=== PATIENT | male | born 1940 | race Caucasian/White ===

== ENCOUNTER 2018-01-24 13:58 | Day surgery (SDC) | payer MEDICARE ==
[2018-01-24] VITALS (7 sets, daily range): BP systolic 98–130; BP diastolic 62–87
[~2018-01-24] VITALS: Ht 177.8 cm; Wt 91.2 kg
[~2018-01-24 13:58] MED LIST: ASPI81TA52 PO; ATOR40TA PO; CARV25TA2 PO; CLON-529 PO; DABI150C PO; HYDR-4069 PO; HYDR25TA4 PO; ISOS60TA4 PO; LISI40TA4 PO; NITR0.4T51 SL
[2018-01-24] MEDS ORDERED: LORazepam 0.5 MG tablet PO PRN (14:25)
[2018-01-24] MEDS ORDERED: diphenhydrAMINE 25mg capsule PO PRN (14:25)
[2018-01-24] MEDS ORDERED: normal saline 1000ml 1,000 ML IV SCH (14:25)
[2018-01-24] MEDS ORDERED: POTA20PA40 PO (14:43)
[2018-01-24] MEDS ORDERED: FURO40TA4 PO (14:43)
[2018-01-24] MEDS ORDERED: AMLO10TA4 PO (14:43)
[2018-01-24] MEDS ORDERED: OMEP20TA23 PO (14:43)
[2018-01-24] MEDS ORDERED: TRAZ-218 PO (14:43)
[2018-01-24] MEDS ORDERED: CHLO25TA2 PO (14:44)
[2018-01-24] MEDS ORDERED: midazolam 2 mg/2 ml injection ONE (16:22)
[2018-01-24] MEDS ORDERED: LIDOcaine 1% (10mg/ml)w/preservative injection 20ml MDV ONE (16:22)
[2018-01-24] MEDS ORDERED: fentaNYL/PF 50MCG/1 ML 2ML syringe ONE (16:22)
[2018-01-24] MEDS ORDERED: iohexol 350MG/ML 100ml bottle IV ONE (16:22)
[2018-01-24] MEDS ORDERED: iohexol 350 MG/ML 50ML vial IV ONE (17:20)
[2018-01-24] MEDS ORDERED: ondansetron/PF 4mg/2ml inj IV PRN (18:15)
[2018-01-24] MEDS ORDERED: HYDROcodone/acetaminophen 5mg/325mg tablet PO PRN (18:15)
[2018-01-24] MEDS ORDERED: OXAZEpam 15mg capsule PO PRN (18:20)
[2018-01-24] MEDS ORDERED: proCHLORperazine 10 MG/2 ml inj IV PRN (18:20)
[2018-01-24] MEDS ORDERED: HYDROcodone/acetaminophen 10/325mg tab PO PRN (18:20)
[2018-01-24] MEDS ORDERED: ACETYLCYSTEINE 200 MG/1 ML 4 ML ORAL SOLUTION PO SCH (20:00)
== END 2018-01-24 20:03 | disposition home or self-care (01) ==
LOC: SSTAY O 13:58
PROVIDERS: ATTEND Internal Medicine Interventional Cardiology
DX: I25.708 Atherosclerosis of coronary artery bypass graft(s), unspecified, with other forms of angina pectoris (principal); E78.5 Hyperlipidemia, unspecified; I25.2 Old myocardial infarction; I48.91 Unspecified atrial fibrillation; I44.7 Left bundle-branch block, unspecified; I45.81 Long QT syndrome; I25.5 Ischemic cardiomyopathy; I65.23 Occlusion and stenosis of bilateral carotid arteries; K21.9 Gastro-esophageal reflux disease without esophagitis; E78.00 Pure hypercholesterolemia, unspecified; I11.0 Hypertensive heart disease with heart failure; I50.9 Heart failure, unspecified; G89.29 Other chronic pain; Z85.828 Personal history of other malignant neoplasm of skin; Z95.0 Presence of cardiac pacemaker; Z90.49 Acquired absence of other specified parts of digestive tract; Z86.79 Personal history of other diseases of the circulatory system; Z95.1 Presence of aortocoronary bypass graft; Z95.5 Presence of coronary angioplasty implant and graft; Z86.73 Personal history of transient ischemic attack (TIA), and cerebral infarction without residual deficits; Z79.82 Long term (current) use of aspirin; Z79.891 Long term (current) use of opiate analgesic; Z86.74 Personal history of sudden cardiac arrest; Z79.899 Other long term (current) drug therapy; Z98.890 Other specified postprocedural states
CPT/HCPCS: 93005; 93459; 99152; 99153; A6257; C1769; J1644; J2001; J2250; J3010; J7030; Q0163; Q9967; A4620

== ENCOUNTER 2018-03-21 18:46 | Inpatient (IN) | payer MEDICARE ==
[~2018-03-21] VITALS: Ht 177.8 cm; Wt 90.0 kg
[~2018-03-21 18:46] MED LIST changes: +AMLO10TA4 PO; +CHLO25TA2 PO; +FURO40TA4 PO; -HYDR25TA4 PO; +OMEP20TA23 PO; +POTA20PA40 PO; +TRAZ-218 PO
[2018-03-21 19:52] LABS: BASOPHILS % (AUTO) 0.1 % (0-1); EOSINOPHILS # (AUTO) 0.3 X10'3 (0-0.9); EOSINOPHILS % (AUTO) 1.6 % (0-6); HEMATOCRIT 35.9 % (42.0-52.0); HEMOGLOBIN 11.9 g/dl (14.0-17.9); LYMPHOCYTES # (AUTO) 1.1 X10'3 (1.1-4.8); LYMPHOCYTES % (AUTO) 5.7 % (21-51); MEAN CORPUSCULAR HEMOGLOBIN 28.5 PG (27.0-31.0); MEAN CORPUSCULAR VOLUME 86.3 FL (78-98); MEAN PLATELET VOLUME 6.9 FL (7.4-10.4); MONOCYTES # (AUTO) 0.5 X10'3 (0-0.9); MONOCYTES % (AUTO) 2.6 % (2-12); NEUTROPHILS # (AUTO) 16.6 X10'3 (1.8-7.7); PLATELET COUNT 368 X10'3 (140-440); RED BLOOD COUNT 4.17 X10'6 (4.70-6.10); RED CELL DISTRIBUTION WIDTH 14.9 % (11.5-14.5); WHITE BLOOD COUNT 18.5 X10'3 (4.5-11.0)
[2018-03-21 20:02] LABS: ALANINE AMINOTRANSFERASE 51 U/L (12-78); ALBUMIN 2.6 G/DL (3.4-5.0); ALBUMIN/GLOBULIN RATIO 0.6 (1.1-1.5); ALKALINE PHOSPHATASE 114 IU/L (46-116); ANION GAP 8 (8-16); ASPARTATE AMINO TRANSFERASE 30 U/L (10-37); BILIRUBIN,TOTAL 0.5 MG/DL (0.1-1.0); BLOOD UREA NITROGEN 25 MG/DL (7-18); BUN/CREATININE RATIO 22.7 (5.4-32.0); CALCIUM 9.2 MG/DL (8.5-10.1); CHLORIDE 98 MMOL/L (99-107); GLUCOSE 144 MG/DL (70-104); POTASSIUM 4.1 MMOL/L (3.5-5.1); SODIUM 137 MMOL/L (135-145); TOTAL CARBON DIOXIDE 30.9 MMOL/L (24-32); TOTAL PROTEIN 7.3 G/DL (6.4-8.2); eGFR 65 ML/MIN
[2018-03-21 20:04] LABS: INR 1.4 INR; PARTIAL THROMBOPLASTIN TIME 34 SECONDS (22-32); PROTHROMBIN TIME 13.6 SECONDS (9.0-12.0)
[2018-03-21] MEDS ORDERED: ipratropium/albuterol 3ml nebule NEB ONE (20:05)
[2018-03-21] MEDS ORDERED: CefTRIAXone 2gm/D5W 50ml 50 ML IV ONE (20:05)
[2018-03-21] MEDS ORDERED: methylPREDNISolone sod succ 125mg/2ml vial IV ONE (20:05)
[2018-03-21] MEDS ORDERED: normal saline 1000ML IV soln IV ONE (20:05)
[2018-03-21] MEDS ORDERED: acetaminophen 325mg tablet PO ONE (20:25)
[2018-03-21] MEDS ORDERED: normal saline 1000ml 1,000 ML IV SCH (23:13)
[2018-03-21] MEDS ORDERED: acetaminophen 325mg tablet PO PRN (23:15)
[2018-03-21] MEDS ORDERED: mag hydrox/Alum hydrox/simeth 30ml oral suspension PO PRN (23:15)
[2018-03-21] MEDS ORDERED: ondansetron/PF 4mg/2ml inj IV PRN (23:15)
[2018-03-21] MEDS ORDERED: magnesium hydroxide 30ml (MOM) UD suspension PO PRN (23:15)
[2018-03-21] MEDS ORDERED: HYDROcodone/acetaminophen 5mg/325mg tablet PO PRN (23:15)
[2018-03-21] MEDS ORDERED: azithromycin 250mg tablet PO ONE (23:20)
[2018-03-22 00:36] LABS: CLARITY,URINE CLEAR (Clear); COLOR,URINE YELLOW (Yellow); GLUCOSE, URINE NEGATIVE (Neg); KETONES,URINE TRACE mg/dl (Neg); LEUKOCYTE ESTERASE ,URINE NEGATIVE (Neg); NITRITES, URINE NEGATIVE (Neg); OCCULT BLOOD,URINE NEGATIVE (Neg); PROTEIN,URINE TRACE mg/dl (Neg)
[2018-03-22 00:39] LABS: UA COLLECTION TYPE VOIDED
[2018-03-22 00:45] LABS: BACTERIA,URINE FEW /HPF (Neg); MUCUS STRANDS FEW /LPF (Neg); RBC,URINE 0-2 /HPF (0-2); SQUAMOUS EPITHELIAL CELL,UR FEW /LPF (FEW); WBC,URINE 0-4 /HPF (0-4)
[2018-03-22] MEDS ORDERED: metoprolol tartrate 1mg/ml inj IV ONE (03:10)
[2018-03-22] MEDS: aspirin 81mg tablet.DR PO SCH (07:42)
[2018-03-22] MEDS: amLODIPine 5mg tablet PO SCH (07:42)
[2018-03-22] MEDS: carVEDilol 12.5mg tablet PO SCH ×2 (07:43→19:58)
[2018-03-22] MEDS: potassium Cl 20 mEq SR tablet PO SCH (07:43)
[2018-03-22] MEDS: pantoprazole 40mg Tablet.DR PO SCH (07:43)
[2018-03-22] MEDS: CefTRIAXone/D5W-Rocephin 1gm 50 ML IV SCH (07:44)
[2018-03-22] MEDS: azithromycin 250mg tablet PO SCH (07:44)
[2018-03-22 07:50] LABS: BASOPHILS % (AUTO) 0.2 % (0-1); EOSINOPHILS # (AUTO) 0.2 X10'3 (0-0.9); EOSINOPHILS % (AUTO) 0.8 % (0-6); HEMATOCRIT 34.2 % (42.0-52.0); HEMOGLOBIN 11.3 g/dl (14.0-17.9); LYMPHOCYTES % (AUTO) 4.7 % (21-51); MEAN CORPUSCULAR HEMOGLOBIN 28.5 PG (27.0-31.0); MEAN CORPUSCULAR VOLUME 86.4 FL (78-98); MEAN PLATELET VOLUME 7.8 FL (7.4-10.4); MONOCYTES # (AUTO) 0.8 X10'3 (0-0.9); MONOCYTES % (AUTO) 3.6 % (2-12); NEUTROPHILS # (AUTO) 19.4 X10'3 (1.8-7.7); NEUTROPHILS % (AUTO) 90.7 % (42-75); PLATELET COUNT 313 X10'3 (140-440); RED BLOOD COUNT 3.95 X10'6 (4.70-6.10); RED CELL DISTRIBUTION WIDTH 15.3 % (11.5-14.5); WHITE BLOOD COUNT 21.4 X10'3 (4.5-11.0)
[2018-03-22] MEDS: chlorthalidone 25mg tablet PO SCH (07:51)
[2018-03-22] MEDS: hydrALAZINE 25 MG tablet PO SCH ×4 (07:51→20:03)
[2018-03-22] MEDS ORDERED: furosemide 40mg tablet PO SCH (08:00)
[2018-03-22] MEDS ORDERED: heparin, porcine 5000 units/ml vial SQ SCH (08:00)
[2018-03-22 08:17] LABS: ALANINE AMINOTRANSFERASE 45 U/L (12-78); ALBUMIN 2.1 G/DL (3.4-5.0); ALBUMIN/GLOBULIN RATIO 0.5 (1.1-1.5); ALKALINE PHOSPHATASE 99 IU/L (46-116); ANION GAP 13 (8-16); ASPARTATE AMINO TRANSFERASE 35 U/L (10-37); BILIRUBIN,TOTAL 0.5 MG/DL (0.1-1.0); BLOOD UREA NITROGEN 25 MG/DL (7-18); BUN/CREATININE RATIO 28.1 (5.4-32.0); CALCIUM 8.1 MG/DL (8.5-10.1); CHLORIDE 103 MMOL/L (99-107); CREATININE 0.89 MG/DL (0.60-1.10); GLUCOSE 144 MG/DL (70-104); POTASSIUM 3.9 MMOL/L (3.5-5.1); SODIUM 138 MMOL/L (135-145); TOTAL CARBON DIOXIDE 22.3 MMOL/L (24-32); TOTAL PROTEIN 6.6 G/DL (6.4-8.2); eGFR 83 ML/MIN
[2018-03-22 08:55] LABS: PLATELET ESTIMATE DECREASED; TOTAL CELLS COUNTED 100; TOXIC GRANULATION 1+
[2018-03-22 08:56] LABS: BURR CELLS FEW; SCHISTOCYTES FEW
[2018-03-22 08:57] LABS: ELLIPTOCYTES FEW
[2018-03-22] MEDS ORDERED: furosemide 10 MG/1 ML 10ml inj IV ONE (10:40)
[2018-03-22 14:45] VITALS: BP 125/72
[2018-03-22 18:00] VITALS: BP 140/89
[2018-03-22] MEDS: furosemide 40mg/4ml inj IV SCH (19:58)
[2018-03-22] MEDS: lactobacillus rhamnosus 10,000 MMU CELLS/CAPSULE PO SCH (19:58)
[2018-03-22] MEDS: enoxaparin 80mg/0.8ml syringe SUBCUT SCH (19:59)
[2018-03-22] MEDS: traZODone 50mg tablet PO SCH (20:03)
[2018-03-22] MEDS: atorvastatin 20mg tablet PO SCH (20:04)
[2018-03-23] VITALS: BP 115/76
[2018-03-23] MEDS ORDERED: albuterol 2.5 MG/3 ML nebule NEB PRN (01:00)
[2018-03-23 05:35] LABS: BASOPHILS % (AUTO) 0 % (0-1); EOSINOPHILS % (AUTO) 0 % (0-6); HEMATOCRIT 36.4 % (42.0-52.0); LYMPHOCYTES # (AUTO) 1.7 X10'3 (1.1-4.8); LYMPHOCYTES % (AUTO) 8.1 % (21-51); MEAN CORPUSCULAR HEMOGLOBIN 28.3 PG (27.0-31.0); MEAN CORPUSCULAR HGB CONC 32.9 % (33.0-36.5); MEAN PLATELET VOLUME 7.7 FL (7.4-10.4); MONOCYTES # (AUTO) 0.7 X10'3 (0-0.9); MONOCYTES % (AUTO) 3.3 % (2-12); NEUTROPHILS # (AUTO) 18.8 X10'3 (1.8-7.7); NEUTROPHILS % (AUTO) 88.6 % (42-75); PLATELET COUNT 360 X10'3 (140-440); RED BLOOD COUNT 4.23 X10'6 (4.70-6.10); RED CELL DISTRIBUTION WIDTH 15.2 % (11.5-14.5); WHITE BLOOD COUNT 21.3 X10'3 (4.5-11.0)
[2018-03-23 05:53] LABS: ALANINE AMINOTRANSFERASE 450 U/L (12-78); ALBUMIN 2.5 G/DL (3.4-5.0); ALBUMIN/GLOBULIN RATIO 0.5 (1.1-1.5); ALKALINE PHOSPHATASE 141 IU/L (46-116); ANION GAP 12 (8-16); ASPARTATE AMINO TRANSFERASE 477 U/L (10-37); BILIRUBIN,TOTAL 0.7 MG/DL (0.1-1.0); BLOOD UREA NITROGEN 49 MG/DL (7-18); BUN/CREATININE RATIO 36.8 (5.4-32.0); CALCIUM 9.3 MG/DL (8.5-10.1); CHLORIDE 99 MMOL/L (99-107); CREATININE 1.33 MG/DL (0.60-1.10); GLUCOSE 135 MG/DL (70-104); POTASSIUM 4.1 MMOL/L (3.5-5.1); SODIUM 139 MMOL/L (135-145); TOTAL CARBON DIOXIDE 28.4 MMOL/L (24-32); TOTAL PROTEIN 7.5 G/DL (6.4-8.2); eGFR 52 ML/MIN
[2018-03-23 06:20] LABS: TOTAL CELLS COUNTED 100
[2018-03-23 06:21] LABS: ANISOCYTOSIS 1+; PLATELET ESTIMATE NORMAL; POLYCHROMASIA 1+; TOXIC GRANULATION 3+
[2018-03-23 07:30] VITALS: BP 145/76
[2018-03-23] MEDS: lactobacillus rhamnosus 10,000 MMU CELLS/CAPSULE PO SCH ×2 (07:42→19:09)
[2018-03-23] MEDS: amLODIPine 5mg tablet PO SCH (07:42)
[2018-03-23] MEDS: azithromycin 250mg tablet PO SCH (07:42)
[2018-03-23] MEDS: chlorthalidone 25mg tablet PO SCH (07:43)
[2018-03-23] MEDS: aspirin 81mg tablet.DR PO SCH (07:43)
[2018-03-23] MEDS: potassium Cl 20 mEq SR tablet PO SCH (07:43)
[2018-03-23] MEDS: hydrALAZINE 25 MG tablet PO SCH ×4 (07:43→21:40)
[2018-03-23] MEDS: furosemide 40mg/4ml inj IV SCH ×2 (07:43→19:08)
[2018-03-23] MEDS: pantoprazole 40mg Tablet.DR PO SCH (07:43)
[2018-03-23] MEDS: carVEDilol 12.5mg tablet PO SCH ×2 (07:43→19:09)
[2018-03-23] MEDS: CefTRIAXone/D5W-Rocephin 1gm 50 ML IV SCH (07:44)
[2018-03-23] MEDS: enoxaparin 80mg/0.8ml syringe SUBCUT SCH (07:44)
[2018-03-23 12:16] VITALS: BP 123/59
[2018-03-23 18:00] VITALS: BP 109/64
[2018-03-23] MEDS: traZODone 50mg tablet PO SCH (21:40)
[2018-03-23] MEDS: atorvastatin 20mg tablet PO SCH (21:40)
[2018-03-24] VITALS: BP 124/67
[2018-03-24 05:21] LABS: BASOPHILS % (AUTO) 0.2 % (0-1); EOSINOPHILS # (AUTO) 0.2 X10'3 (0-0.9); EOSINOPHILS % (AUTO) 0.9 % (0-6); HEMATOCRIT 33.5 % (42.0-52.0); HEMOGLOBIN 11.1 g/dl (14.0-17.9); LYMPHOCYTES # (AUTO) 0.9 X10'3 (1.1-4.8); LYMPHOCYTES % (AUTO) 5.3 % (21-51); MEAN CORPUSCULAR HEMOGLOBIN 28.1 PG (27.0-31.0); MEAN CORPUSCULAR HGB CONC 33.2 % (33.0-36.5); MEAN CORPUSCULAR VOLUME 84.5 FL (78-98); MONOCYTES # (AUTO) 0.5 X10'3 (0-0.9); MONOCYTES % (AUTO) 2.9 % (2-12); NEUTROPHILS # (AUTO) 15.2 X10'3 (1.8-7.7); NEUTROPHILS % (AUTO) 90.7 % (42-75); PLATELET COUNT 288 X10'3 (140-440); RED BLOOD COUNT 3.97 X10'6 (4.70-6.10); RED CELL DISTRIBUTION WIDTH 15.5 % (11.5-14.5); WHITE BLOOD COUNT 16.8 X10'3 (4.5-11.0)
[2018-03-24 05:43] LABS: ALANINE AMINOTRANSFERASE 383 U/L (12-78); ALBUMIN 2.2 G/DL (3.4-5.0); ALBUMIN/GLOBULIN RATIO 0.5 (1.1-1.5); ALKALINE PHOSPHATASE 123 IU/L (46-116); ANION GAP 13 (8-16); ASPARTATE AMINO TRANSFERASE 243 U/L (10-37); BILIRUBIN,TOTAL 0.7 MG/DL (0.1-1.0); BLOOD UREA NITROGEN 49 MG/DL (7-18); CHLORIDE 95 MMOL/L (99-107); CREATININE 1.09 MG/DL (0.60-1.10); GLUCOSE 138 MG/DL (70-104); SODIUM 139 MMOL/L (135-145); TOTAL CARBON DIOXIDE 31.4 MMOL/L (24-32); TOTAL PROTEIN 6.7 G/DL (6.4-8.2); eGFR 65 ML/MIN
[2018-03-24] MEDS ORDERED: potassium Cl 40MEQ/NS 500ml 500 ML IV PRN ×2 (05:55)
[2018-03-24 07:28] VITALS: BP 115/73
[2018-03-24] MEDS: K and/or MAG REPLACEMENT MC SCH (08:00)
[2018-03-24] MEDS: CefTRIAXone/D5W-Rocephin 1gm 50 ML IV SCH (09:26)
[2018-03-24] MEDS: carVEDilol 12.5mg tablet PO SCH ×2 (09:26→19:55)
[2018-03-24] MEDS: azithromycin 250mg tablet PO SCH (09:26)
[2018-03-24] MEDS: hydrALAZINE 25 MG tablet PO SCH ×4 (09:27→20:50)
[2018-03-24] MEDS: lactobacillus rhamnosus 10,000 MMU CELLS/CAPSULE PO SCH ×2 (09:27→19:55)
[2018-03-24] MEDS: aspirin 81mg tablet.DR PO SCH (09:27)
[2018-03-24] MEDS: amLODIPine 5mg tablet PO SCH (09:28)
[2018-03-24] MEDS: potassium Cl 20 mEq SR tablet PO SCH (09:29)
[2018-03-24] MEDS: furosemide 40mg/4ml inj IV SCH ×2 (09:29→19:55)
[2018-03-24] MEDS: potassium Cl 20 mEq SR tablet PO PRN ×2 (09:30→19:55)
[2018-03-24] MEDS: pantoprazole 40mg Tablet.DR PO SCH (09:42)
[2018-03-24 12:00] VITALS: BP 100/60
[2018-03-24 13:30] VITALS: BP 98/59
[2018-03-24 18:00] VITALS: BP 118/63
[2018-03-24] MEDS: traZODone 50mg tablet PO SCH (20:50)
[2018-03-24] MEDS: atorvastatin 20mg tablet PO SCH (20:50)
[2018-03-24 23:30] VITALS: BP 109/66
[2018-03-25 05:32] LABS: BASOPHILS % (AUTO) 0.1 % (0-1); EOSINOPHILS % (AUTO) 0.1 % (0-6); HEMATOCRIT 33.3 % (42.0-52.0); LYMPHOCYTES # (AUTO) 1.3 X10'3 (1.1-4.8); LYMPHOCYTES % (AUTO) 8.9 % (21-51); MEAN CORPUSCULAR HEMOGLOBIN 28.1 PG (27.0-31.0); MEAN CORPUSCULAR HGB CONC 32.9 % (33.0-36.5); MEAN CORPUSCULAR VOLUME 85.5 FL (78-98); MEAN PLATELET VOLUME 8.4 FL (7.4-10.4); MONOCYTES # (AUTO) 0.7 X10'3 (0-0.9); MONOCYTES % (AUTO) 4.8 % (2-12); NEUTROPHILS # (AUTO) 12.3 X10'3 (1.8-7.7); NEUTROPHILS % (AUTO) 86.1 % (42-75); PLATELET COUNT 320 X10'3 (140-440); WHITE BLOOD COUNT 14.3 X10'3 (4.5-11.0)
[2018-03-25 05:33] LABS: ALANINE AMINOTRANSFERASE 467 U/L (12-78); ALBUMIN 2.2 G/DL (3.4-5.0); ALBUMIN/GLOBULIN RATIO 0.4 (1.1-1.5); ALKALINE PHOSPHATASE 128 IU/L (46-116); ANION GAP 8 (8-16); ASPARTATE AMINO TRANSFERASE 267 U/L (10-37); BILIRUBIN,TOTAL 0.7 MG/DL (0.1-1.0); BLOOD UREA NITROGEN 47 MG/DL (7-18); BUN/CREATININE RATIO 43.9 (5.4-32.0); CALCIUM 8.9 MG/DL (8.5-10.1); CHLORIDE 95 MMOL/L (99-107); CREATININE 1.07 MG/DL (0.60-1.10); GLUCOSE 142 MG/DL (70-104); POTASSIUM 3.4 MMOL/L (3.5-5.1); SODIUM 135 MMOL/L (135-145); TOTAL CARBON DIOXIDE 32.4 MMOL/L (24-32); TOTAL PROTEIN 7.1 G/DL (6.4-8.2); eGFR 67 ML/MIN
[2018-03-25 07:49] VITALS: BP 112/66
[2018-03-25] MEDS: K and/or MAG REPLACEMENT MC SCH (08:00)
[2018-03-25] MEDS: azithromycin 250mg tablet PO SCH (08:57)
[2018-03-25] MEDS: lactobacillus rhamnosus 10,000 MMU CELLS/CAPSULE PO SCH ×2 (08:58→19:16)
[2018-03-25] MEDS: aspirin 81mg tablet.DR PO SCH (08:58)
[2018-03-25] MEDS: pantoprazole 40mg Tablet.DR PO SCH (08:58)
[2018-03-25] MEDS: carVEDilol 12.5mg tablet PO SCH ×2 (08:59→19:15)
[2018-03-25] MEDS: hydrALAZINE 25 MG tablet PO SCH ×4 (08:59→21:33)
[2018-03-25] MEDS: amLODIPine 5mg tablet PO SCH (08:59)
[2018-03-25] MEDS: potassium Cl 20 mEq SR tablet PO PRN ×2 (09:00→19:15)
[2018-03-25] MEDS: potassium Cl 20 mEq SR tablet PO SCH (09:00)
[2018-03-25] MEDS: CefTRIAXone/D5W-Rocephin 1gm 50 ML IV SCH (09:01)
[2018-03-25] MEDS: furosemide 40mg/4ml inj IV SCH ×2 (09:02→19:21)
[2018-03-25 12:48] VITALS: BP 114/68
[2018-03-25 18:00] VITALS: BP 137/56
[2018-03-25] MEDS: traZODone 50mg tablet PO SCH (21:33)
[2018-03-25] MEDS: atorvastatin 20mg tablet PO SCH (21:33)
[2018-03-26] VITALS: BP 112/62
[2018-03-26 06:40] LABS: BASOPHILS % (AUTO) 0.1 % (0-1); EOSINOPHILS # (AUTO) 0.2 X10'3 (0-0.9); EOSINOPHILS % (AUTO) 1.4 % (0-6); HEMATOCRIT 31.4 % (42.0-52.0); HEMOGLOBIN 10.4 g/dl (14.0-17.9); LYMPHOCYTES # (AUTO) 1.2 X10'3 (1.1-4.8); LYMPHOCYTES % (AUTO) 10.2 % (21-51); MEAN CORPUSCULAR HEMOGLOBIN 28.1 PG (27.0-31.0); MEAN CORPUSCULAR HGB CONC 33.1 % (33.0-36.5); MEAN CORPUSCULAR VOLUME 84.9 FL (78-98); MEAN PLATELET VOLUME 8.3 FL (7.4-10.4); MONOCYTES # (AUTO) 0.7 X10'3 (0-0.9); MONOCYTES % (AUTO) 5.9 % (2-12); NEUTROPHILS % (AUTO) 82.4 % (42-75); PLATELET COUNT 293 X10'3 (140-440); RED CELL DISTRIBUTION WIDTH 14.3 % (11.5-14.5); WHITE BLOOD COUNT 12.1 X10'3 (4.5-11.0)
[2018-03-26 07:00] VITALS: BP 124/68
[2018-03-26 07:04] LABS: ALANINE AMINOTRANSFERASE 412 U/L (12-78); ALBUMIN/GLOBULIN RATIO 0.4 (1.1-1.5); ALKALINE PHOSPHATASE 118 IU/L (46-116); ANION GAP 6 (8-16); ASPARTATE AMINO TRANSFERASE 181 U/L (10-37); BILIRUBIN,TOTAL 0.6 MG/DL (0.1-1.0); BLOOD UREA NITROGEN 39 MG/DL (7-18); BUN/CREATININE RATIO 39.4 (5.4-32.0); CALCIUM 8.6 MG/DL (8.5-10.1); CHLORIDE 96 MMOL/L (99-107); CREATININE 0.99 MG/DL (0.60-1.10); GLUCOSE 138 MG/DL (70-104); SODIUM 137 MMOL/L (135-145); TOTAL PROTEIN 6.5 G/DL (6.4-8.2); eGFR 73 ML/MIN
[2018-03-26 07:26] LABS: POTASSIUM 2.9 MMOL/L (3.5-5.1)
[2018-03-26] MEDS: K and/or MAG REPLACEMENT MC SCH (08:00)
[2018-03-26] MEDS: furosemide 40mg/4ml inj IV SCH (08:21)
[2018-03-26] MEDS: CefTRIAXone/D5W-Rocephin 1gm 50 ML IV SCH (08:21)
[2018-03-26] MEDS: aspirin 81mg tablet.DR PO SCH (08:28)
[2018-03-26] MEDS: azithromycin 250mg tablet PO SCH (08:28)
[2018-03-26] MEDS: potassium Cl 20 mEq SR tablet PO SCH (08:28)
[2018-03-26] MEDS: potassium Cl 20 mEq SR tablet PO PRN ×2 (08:28→13:52)
[2018-03-26] MEDS: amLODIPine 5mg tablet PO SCH (08:29)
[2018-03-26] MEDS: hydrALAZINE 25 MG tablet PO SCH ×2 (08:29→13:00)
[2018-03-26] MEDS: carVEDilol 12.5mg tablet PO SCH (08:29)
[2018-03-26] MEDS: pantoprazole 40mg Tablet.DR PO SCH (09:23)
[2018-03-26] MEDS: lactobacillus rhamnosus 10,000 MMU CELLS/CAPSULE PO SCH (09:23)
[2018-03-26 11:00] VITALS: BP 94/53
== END 2018-03-26 13:54 | DRG 871 ==
LOC: ER 18:46 → ED HOLD 23:13 → EDBEDREQSVC 23:39 → EDBEDREQ 03-22 13:08 → SUR 3N 03-22 14:30
PROVIDERS: ADMIT Internal Medicine; ATTEND Family Medicine
DX: A41.9 Sepsis, unspecified organism (principal); J18.1 Lobar pneumonia, unspecified organism; I50.33 Acute on chronic diastolic (congestive) heart failure; J96.20 Acute and chronic respiratory failure, unspecified whether with hypoxia or hypercapnia; I48.91 Unspecified atrial fibrillation; E78.5 Hyperlipidemia, unspecified; E87.6 Hypokalemia; R79.89 Other specified abnormal findings of blood chemistry; I25.10 Atherosclerotic heart disease of native coronary artery without angina pectoris; I11.0 Hypertensive heart disease with heart failure; Z23 Encounter for immunization; Z79.82 Long term (current) use of aspirin; Z79.899 Other long term (current) drug therapy; Z95.1 Presence of aortocoronary bypass graft; Z95.810 Presence of automatic (implantable) cardiac defibrillator; Z86.73 Personal history of transient ischemic attack (TIA), and cerebral infarction without residual deficits
CPT/HCPCS: 36415; 71045; 80053; 81001; 83605; 84145; 85025; 85610; 85730; 87040; 87070; 87502; 87503; 93005; 94640; 94667; 94668; 94760; 96365; 96375; 97110; 97116; 97161; 97535; 99285; G0378; J0696; J1644; J1650; J1940; J2930; J3490

== ENCOUNTER 2018-04-11 10:37 | Inpatient (IN) | payer MEDICARE ==
[~2018-04-11] VITALS: Ht 177.8 cm; Wt 96.0 kg
[~2018-04-11 10:37] MED LIST changes: -CLON-529 PO; -DABI150C PO; -ISOS60TA4 PO; -LISI40TA4 PO; -NITR0.4T51 SL; +amiodarone 50MG/ML inj IV ONE; +calcium chloride 100 MG/1 ML inj IV ONE; +dextrose 50%-water 50ml dispensing syringe IV ONE; +epiNEPHrine 0.1mg/ml 10ml syringe ONE; +magnesium sulf 1 GM/2 ML ONE; +naloxone 0.4 mg/ml inj ONE; +sodium bicarbonate (8.4%) 1 mEq/ml syringe ONE
[2018-04-11] MEDS ORDERED: aspirin 81mg tab.chew PO ONE (10:45)
[2018-04-11 11:18] LABS: BASOPHILS % (AUTO) 0.3 % (0-1); EOSINOPHILS % (AUTO) 0.4 % (0-6); HEMATOCRIT 30.6 % (42.0-52.0); HEMOGLOBIN 9.8 g/dl (14.0-17.9); LYMPHOCYTES % (AUTO) 15.6 % (21-51); MEAN CORPUSCULAR HEMOGLOBIN 28.1 PG (27.0-31.0); MEAN PLATELET VOLUME 7.6 FL (7.4-10.4); MONOCYTES # (AUTO) 0.5 X10'3 (0-0.9); MONOCYTES % (AUTO) 7.4 % (2-12); NEUTROPHILS # (AUTO) 5.2 X10'3 (1.8-7.7); NEUTROPHILS % (AUTO) 76.3 % (42-75); PLATELET COUNT 236 X10'3 (140-440); RED BLOOD COUNT 3.48 X10'6 (4.70-6.10); RED CELL DISTRIBUTION WIDTH 17.3 % (11.5-14.5); WHITE BLOOD COUNT 6.7 X10'3 (4.5-11.0)
[2018-04-11] MEDS ORDERED: normal saline 1000ML IV soln IVB ONE (11:20)
[2018-04-11 11:30] LABS: ALANINE AMINOTRANSFERASE 512 U/L (12-78); ALBUMIN 2.7 G/DL (3.4-5.0); ALBUMIN/GLOBULIN RATIO 0.6 (1.1-1.5); ALKALINE PHOSPHATASE 135 IU/L (46-116); ANION GAP 13 (8-16); ASPARTATE AMINO TRANSFERASE 428 U/L (10-37); BILIRUBIN,TOTAL 1.5 MG/DL (0.1-1.0); BLOOD UREA NITROGEN 45 MG/DL (7-18); BUN/CREATININE RATIO 26.3 (5.4-32.0); CALCIUM 9.1 MG/DL (8.5-10.1); CHLORIDE 101 MMOL/L (99-107); CREATININE 1.71 MG/DL (0.60-1.10); GLUCOSE 157 MG/DL (70-104); POTASSIUM 4.9 MMOL/L (3.5-5.1); SODIUM 139 MMOL/L (135-145); TOTAL CARBON DIOXIDE 25.4 MMOL/L (24-32); eGFR 39 ML/MIN
[2018-04-11 11:35] LABS: INR 1.6 INR; PARTIAL THROMBOPLASTIN TIME 29 SECONDS (22-32); PROTHROMBIN TIME 16.1 SECONDS (9.0-12.0)
[2018-04-11 11:38] LABS: MAGNESIUM 2.2 MG/DL (1.5-2.4)
[2018-04-11 12:15] LABS: LIPASE 132 U/L (73-393)
--- NOTE | 2018-04-11 13:19 | NUR ---
ASSUMED CARE OF PT FROM HALINA ANN
[2018-04-11] MEDS ORDERED: potassium Cl 40MEQ/NS 500ml 500 ML IV PRN ×2 (13:25)
[2018-04-11] MEDS ORDERED: HYDROcodone/acetaminophen 5mg/325mg tablet PO PRN (13:25)
[2018-04-11] MEDS ORDERED: magnesium 4gm in 100ml NS 100 ML IV PRN (13:25)
[2018-04-11] MEDS ORDERED: potassium Cl 20 mEq SR tablet PO PRN ×2 (13:25)
[2018-04-11] MEDS ORDERED: acetaminophen 325mg tablet PO PRN (13:25)
[2018-04-11] MEDS ORDERED: morphine 4 MG/ML inj SYRINge IV PRN (13:25)
[2018-04-11] MEDS ORDERED: ondansetron/PF 4mg/2ml inj IV PRN (13:25)
[2018-04-11] MEDS ORDERED: magnesium Cl slow-release 64mg tablet PO PRN (13:25)
--- NOTE | 2018-04-11 14:00 | NUR ---
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
--- NOTE | 2018-04-11 14:14 | NUR ---
PT IS G[facility] 14, ALERT AND ORIENTED, SKIN IS PALE, DRY AND WARM, RESP EVEN AND UNLABORED, PT DENIES DIZZINESS "I JUST FEEL WEAK BUT A LITTLE BETTER THAN WHEN I FIRST CAME IN"
--- NOTE | 2018-04-11 14:26 | NUR ---
paged hospitalist regarding blood pressure
--- NOTE | 2018-04-11 14:40 | NUR ---
DR JEROME GAVE VERBAL ORDER NS 50ML/HR, AWARE OF LOW BP
[2018-04-11] MEDS ORDERED: normal saline 1000ml 1,000 ML IV SCH (14:45)
--- NOTE | 2018-04-11 15:20 | NUR ---
FAMILY WENT HOME,
[2018-04-11 15:22] VITALS: BP 116/39
--- NOTE | 2018-04-11 15:24 | NUR ---
SEE CODE SHEET. PT WAS FOUND NOT BREATHING, NO PULSE, CPR STARTED
[2018-04-11] MEDS ORDERED: amiodarone/D5 360MG/200ML BAG 200 ML IV SCH (15:35)
[2018-04-11 15:43] LABS: OCCULT BLOOD STOOL NEGATIVE (Neg)
--- NOTE | 2018-04-11 16:10 | NUR ---
DR PRETTY EXPLAINED TO PT HAD , [facility]
--- NOTE | 2018-04-11 16:55 | NUR ---
TALKED WITH ROBI, OIL DEVELOPER, HE SAID PT IS RELEASED TO GO [facility]LAIRS
--- NOTE | 2018-04-11 17:55 | NUR ---
[facility] CONTACTED, WILL BE HERE IN 1-2 HOURS FOR PT, FAMILY AWARE AND IS GOING HOME, GAVE PT BILATERAL HEARING AIDS, 3 BRACELETS, ON RING, AND GLASSES
--- NOTE | 2018-04-11 19:07 | NUR ---
[facility] AT BEDSIDE TO TAKE PT TO [facility]
[2018-04-11] MEDS ORDERED: docusate sod 100mg capsule PO SCH (20:00)
[2018-04-12] MEDS ORDERED: K and/or MAG REPLACEMENT MC SCH (08:00)
== END 2018-04-11 19:08 | disposition expired ==
LOC: ER 10:37 → ED HOLD 13:25
PROVIDERS: ADMIT Internal Medicine; ATTEND Internal Medicine
DX: I21.4 Non-ST elevation (NSTEMI) myocardial infarction (principal); I50.21 Acute systolic (congestive) heart failure; K72.00 Acute and subacute hepatic failure without coma; N17.9 Acute kidney failure, unspecified; I25.10 Atherosclerotic heart disease of native coronary artery without angina pectoris; I48.91 Unspecified atrial fibrillation; I46.9 Cardiac arrest, cause unspecified; I50.9 Heart failure, unspecified; Z95.0 Presence of cardiac pacemaker; Z95.1 Presence of aortocoronary bypass graft; Z86.73 Personal history of transient ischemic attack (TIA), and cerebral infarction without residual deficits; Z87.01 Personal history of pneumonia (recurrent)
CPT/HCPCS: 36415; 71045; 80053; 82272; 82948; 83690; 83735; 83880; 84484; 85025; 85610; 85730; 93005; 93306; 99285; G0378; J0171; J0282; J2310; J3475